=== PATIENT | female | born 2000 | race African-American/Black ===

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

== ENCOUNTER 2019-01-06 11:40 | Emergency (ER) | payer OTHER ==
[~2019-01-06] VITALS: Ht 152.4 cm; Wt 69.2 kg
[2019-01-06] MEDS ORDERED: NS 500 ML IV ONE (13:15)
[2019-01-06] MEDS ORDERED: ACETAMINOPHEN TAB 650MG DOSE (2X325MG) PO ONE (13:15)
[2019-01-06 15:11] VITALS: BP 122/66
== END 2019-01-06 15:13 | disposition home or self-care (01) ==
LOC: M ED 11:40
DX: R51 Headache (principal); Z33.1 Pregnant state, incidental; Z3A.24 24 weeks gestation of pregnancy

== ENCOUNTER 2020-05-28 07:44 | Outpatient (CLI) | payer OTHER ==
[~2020-05-28] VITALS: Ht 152.4 cm; Wt 78.4 kg
[2020-05-28 07:39] VITALS: BP 124/73
[2020-05-28 09:20] VITALS: BP 136/75
--- NOTE | 2020-05-28 09:37 | IPNPDOC ---
Obstetrical Progress Note Date of Service May 28, 2020 Subjective 19yo kacie [id number] @29+1 presenting by ambulance for evaluation of lower abdominal pain. Denies bleeding, lof, vaginal discharge, states positive movement. Objective Vital Signs Date Time Temp Pulse Resp B/P (MAP) Pulse Ox O2 Delivery O2 Flow Rate FiO2 05/28/20 07:39 99.5 109 16 124/73 (90) Room Air Assessment Heart Rate (FHR): 120 Variability: Moderate Accelerations: Positive Decelerations: None Heart Rate Tracing: Other (appropriate for gestational age) Tocometer Contractions: No Assessment and Plan Age: 19 : 2 Term: 1 Pre-term: 0 Abortions: 0 Livin EGA at Admission: 29 (+1) Status: Reassuring Group B Streptococcus: Unknown Additional Comments Uterus is soft with no contractions noted. Pt states pain improves with rest and returns with standing/walking. Pain improved with support. Reviewed education on PTL precautions, reasons to return for care, normal comfort measures, contact information, and use of maternity support belt with expressed understanding. ULISES PACE CNM May 28, 2020 09:37
== END 2020-05-28 09:50 | disposition home or self-care (01) ==
LOC: M LDO 07:44
PROVIDERS: ATTEND Registered Nurse
DX: O26.892 Other specified pregnancy related conditions, second trimester (principal); R10.30 Lower abdominal pain, unspecified; Z3A.29 29 weeks gestation of pregnancy
CPT/HCPCS: G0378; G0463